=== PATIENT | male | born 1945 | race Caucasian/White ===

== ENCOUNTER 2021-05-10 06:50 | Day surgery (SDC) | payer MEDICARE, SELFPAY ==
[2021-04-27 13:22] VITALS: BMI 30.8
--- NOTE | 2021-05-10 07:12 | PM.HPGS ---
History of Present Illness History of Present Illness Consent: Risks, benefits, and alternatives have been discussed and questions answered. Patient agrees to proceed with procedure. Chief complaint: hx of colon polyps Narrative: Scott King is a 76 year old male here for colon cancer screening. He has a history of polyps Review of Systems Review of Systems: All systems reviewed & are unremarkable except as noted in HPI and below PMFSH Past Medical History Medical History (Updated 05/10/21 @ 07:50 by Srinivasa Dalton MD) HTN (hypertension) Hyperlipidemia Prostate CA Social History Social History Smoking status: Never smoker Alcohol intake: never Substance use: never Substance use type: does not use Living arrangements: with family Spiritual care concerns: No Meds Home Medications and Allergies Home Medications Medication Instructions Recorded Confirmed Type Adults Multivitamin 1 caplet PO DAILY 04/27/21 04/27/21 History allopurinol 300 mg PO DAILY 04/27/21 05/10/21 History amlodipine-benazepril 5 - 40 cap PO DAILY 04/27/21 05/10/21 History calcium carbonate-vitamin D2 1 tablet PO BID 04/27/21 05/10/21 History [Calcitab 600 W/Vitamin D] leuprolide (3 month) [Lupron Depot 22.5 mg IM [id number] 04/27/21 05/10/21 History (3 month)] lorazepam 0.5 mg PO PRN 04/27/21 05/10/21 History metoprolol tartrate 100 mg PO BID 04/27/21 05/10/21 History pravastatin 80 mg PO DAILY 04/27/21 05/10/21 History Allergies Allergy/AdvReac Type Severity Reaction Status Date / Time Penicillins Allergy Rash Verified 05/10/21 07:35 Exam Resp: Auscultation: clear to auscultation bilaterally Cardio: Rate: regular rate Rhythm: regular rhythm GI: GI Palp: Yes Soft to palpation and No Tenderness to palpation present (GI) Assessment and Plan Assessment and plan (1) Colon cancer screening: Code(s): Z12.11 - Encounter for screening for malignant neoplasm of colon Status: Acute Assessment and Plan: Colonoscopy with possible biopsy or polypectomy or cautery or injection of substances.
[2021-05-10 07:37] VITALS: BP 151/80; PULSE 59; RESP 16; TEMP 35.9; O2SAT 98; BMI 30.4
[2021-05-10] MEDS: LACTATED RINGERS 1,000 ML 150 ML IV CONT (07:47)
--- NOTE | 2021-05-10 07:48 | WPDANESEPPF ---
Anes - Initial Pre Proc Eval Procedure: Operation Date: 05/10/21 08:30 Proposed Procedures p Screening Colonoscopy - Christ Baugh MD Date/Time: 05/10/21 07:48 Surgeon: Christ Baugh MD Pre Op Diagnosis: hx of colon polyps Patient Data Age: 76 Gender: M Height: 1.78 m Weight: 96.1 kg Last Vital Signs Temp 35.9 C L 05/10/21 07:37 Pulse 59 L 05/10/21 07:37 Resp 16 05/10/21 07:37 BP 151/80 H 05/10/21 07:37 Pulse Ox 98 05/10/21 07:37 Allergies Allergy/AdvReac Type Severity Reaction Status Date / Time Penicillins Allergy Rash Verified 05/10/21 07:35 Home Medications Medication Instructions Recorded Confirmed Type Adults Multivitamin 1 caplet PO DAILY 04/27/21 04/27/21 History allopurinol 300 mg PO DAILY 04/27/21 05/10/21 History amlodipine-benazepril 5 - 40 cap PO DAILY 04/27/21 05/10/21 History calcium carbonate-vitamin D2 1 tablet PO BID 04/27/21 05/10/21 History [Calcitab 600 W/Vitamin D] leuprolide (3 month) [Lupron Depot 22.5 mg IM [id number] 04/27/21 05/10/21 History (3 month)] lorazepam 0.5 mg PO PRN 04/27/21 05/10/21 History metoprolol tartrate 100 mg PO BID 04/27/21 05/10/21 History pravastatin 80 mg PO DAILY 04/27/21 05/10/21 History Patient hx anesthesia problems: none Family hx anesthesia problems: none [facility] Past Medical History Medical History (Updated 05/10/21 @ 07:50 by Srinivasa Dalton MD) HTN (hypertension) Hyperlipidemia Prostate CA Social History Social History Smoking status: Never smoker Alcohol intake: never Substance use: never Substance use type: does not use Living arrangements: with family Spiritual care concerns: No Anes - Eval Final PreProcedure Day of Procedure 05/10/21 07:48 Patient weight: obese Heart: regular rate and rhythm Lungs: clear to auscultation Airway: Mallampati scale class II Neurological: alert and oriented Last oral intake: >/= 8 hours ASA classification: III Emergent: no Anesthetic plan: proceed Anesthesia type and monitoring: general GIVS and standard monitoring Informed Consent: The patient's anesthetic plan and its attendant risks and benefits were discussed with the patient/family/POA. Questions were solicited and answers provided to the satisfaction of the patient/family/POA.
[2021-05-10 08:57] VITALS: BP 88/61; PULSE 51; RESP 17; O2SAT 96
[2021-05-10 09:07] VITALS: BP 104/55; PULSE 515; RESP 20; O2SAT 98
[2021-05-10 09:17] VITALS: BP 119/81; PULSE 55; RESP 21; O2SAT 96
== END 2021-05-10 09:31 | disposition home or self-care (01) ==
PROVIDERS: PCP Internal Medicine; Visit Provider Internal Medicine Gastroenterology
PROC: 0DJD8ZZ Inspection of Lower Intestinal Tract, Via Natural or Artificial Opening Endoscopic (ICD-10-PCS; CPT 45378; principal; 2021-05-10 08:30)
DX: Z12.11 Encounter for screening for malignant neoplasm of colon (principal); Z86.010 Personal history of colon polyps; I10 Essential (primary) hypertension; E78.5 Hyperlipidemia, unspecified; Z85.46 Personal history of malignant neoplasm of prostate; E66.9 Obesity, unspecified; Z68.30 Body mass index [BMI] 30.0-30.9, adult
CPT/HCPCS: G0105; J2704; J7120